=== PATIENT | male | born 1950 | race Caucasian/White ===

== ENCOUNTER → 2017-02-12 | Outpatient (REF) ==
[~2017-02-12] MED LIST: ASPIRIN 81M81 MG/TA2; CATAPRES 0.1MG0.1 MG PO; CEPHALEXIN500 M1 PO; COZAAR 50MG50 MG/TAB PO; DOXYCYCLINE 10100 MG PO; DUO-KAPS1 CAP; DYAZIDE 25 MG-31 CAP PO; FLOMAX 0.40.4 MG/CAP PO; KLOR-CON M2020 MEQ PO; MEDROL 4MG DOSPA4 MG PO; NORVASC 5MG5 MG/TAB PO; PREDNISONE TAPER; PYRIDIUM200 M1 PO; TRIAMTERENE-HCTZ; ZOCOR 20MG20 MG PO
== END ==
LOC: ZLAB.WCH 17:58
DX: Z01.89 Encounter for other specified special examinations (principal)

== ENCOUNTER 2018-09-22 08:56 | Day surgery (SDC) | payer MEDICARE, BC ==
[~2018-09-22] VITALS: Ht 185.4 cm; Wt 74.2 kg
[2018-09-22] VITALS (8 sets, daily range): BP systolic 141–149; BP diastolic 76–87; PULSE 62–85; TEMP 97.6–98.1
[~2018-09-22 08:56] MED LIST changes: -ZOCOR 20MG20 MG PO; +ZOCOR 40MG40 MG PO
--- NOTE | 2018-09-22 13:25 | NUR ---
Pt to [facility] via cart from PACU. Pt drowsy, but awake. Rates abdominal pain 3/10. Bandaids to abdomen are clean, dry, and intact. Pt denies nausea. in room. Water given per pt request. Will continue to monitor. Pt denies needs for pain medciation at this time.
--- NOTE | 2018-09-22 13:40 | NUR ---
Pt dozing on and off. Denies needs at this time. Call light within reach.
--- NOTE | 2018-09-22 13:55 | NUR ---
Pudding given per pt request. Pt rates pain 5/10 to abdomen. Will provide prn pain medication.
--- NOTE | 2018-09-22 13:58 | NUR ---
Tylenol 1000mg PO and Roxicodone 5mg PO given per orders for pain. Will continue to monitor.
--- NOTE | 2018-09-22 14:10 | NUR ---
Pt continues to rest. Denies needs call light within reach.
--- NOTE | 2018-09-22 14:40 | NUR ---
Pt states "the pain is getting better." Pt denies needs at this time. Call light within reach.
--- NOTE | 2018-09-22 15:10 | NUR ---
Pt continues to rest. Denies the need to use the restroom at this time. Will continue to monitor.
[2018-09-22] MEDS ORDERED: ROXICODONE 55 MG/TAB PO (15:11)
[2018-09-22] MEDS ORDERED: TYLENOL 500MG500 MG PO (15:12)
--- NOTE | 2018-09-22 15:30 | NUR ---
Pt continues to rest. Muffin and more water given per pt request. Denies further needs. Call light within reach.
--- NOTE | 2018-09-22 16:10 | NUR ---
Pt up to restroom with stand by assitance. Pt voids small amount without difficulties. Pt back to room to dress. to assist him. Call light within reach.
--- NOTE | 2018-09-22 16:30 | NUR ---
Discharge instructions reviewed. Pt voices understanding. IV site discontinued with all parts intact.
--- NOTE | 2018-09-22 16:40 | NUR ---
Pt escorted to private car via wheel chair. Pt accompanied home by his .
== END 2018-09-22 16:40 | disposition home or self-care (01) ==
LOC: SDCO 08:56
DX: K40.90 Unilateral inguinal hernia, without obstruction or gangrene, not specified as recurrent (principal); I10 Essential (primary) hypertension; E78.00 Pure hypercholesterolemia, unspecified; I35.1 Nonrheumatic aortic (valve) insufficiency; J45.909 Unspecified asthma, uncomplicated; N40.0 Benign prostatic hyperplasia without lower urinary tract symptoms; Z79.899 Other long term (current) drug therapy; Z79.82 Long term (current) use of aspirin
CPT/HCPCS: C1781; J0690; J1100; J2405; J2704; J2710; J3010; J7120

== ENCOUNTER 2020-10-03 07:45 | Observation (INO) | payer MEDICARE, BC ==
[~2020-10-03] VITALS: Ht 185.4 cm; Wt 69.5 kg
[~2020-10-03 07:45] MED LIST changes: +ROXICODONE 55 MG/TAB PO; +TYLENOL 500MG500 MG PO
[2020-10-03 08:21] LABS: INR 0.9 (0.8-3.0); PROTHROMBIN TIME 10.2 SECONDS (9.7-12.8)
[2020-10-03 08:23] LABS: ALANINE AMINOTRANSFERASE 21 U/L (4-49); ALBUMIN 4.5 gm/dL (3.5-5.0); ALKALINE PHOSPHATASE 64 U/L (50-136); ANION GAP 9 mmol/L (7-16); AST,SGOT 30 U/L (15-37); BILIRUBIN,TOTAL 1.2 mg/dL (0.0-1.0); BLOOD UREA NITROGEN 27 mg/dL (9-20); CALCIUM 9.7 mg/dL (8.4-10.2); CARBON DIOXIDE 28 mmol/L (22-30); CHLORIDE 101 mmol/L (98-107); CREATININE, serum 1.41 (0.66-1.25); GLUCOSE 95 mg/dL (74-106); POTASSIUM 3.8 mmol/L (3.4-5.0); SODIUM 139 mmol/L (137-145)
[2020-10-03 08:36] LABS: TROPONIN-I < 0.012 ng/mL (0.000-0.035)
[2020-10-03 08:43] LABS: COLLECTION METHOD CLEAN CATCH
[2020-10-03 08:49] LABS: PH 7 (5-8); SQUAMOUS EPITHELIAL None Seen /hpf; URINE APPEARANCE Clear; URINE BACTERIA None Seen /hpf; URINE BILIRUBIN Negative (NEGATIVE); URINE BLOOD Negative (NEGATIVE); URINE COLOR Straw; URINE GLUCOSE Negative (NEGATIVE); URINE KETONE Negative (NEGATIVE); URINE LEUKOCYTE ESTERASE Negative (NEGATIVE); URINE NITRATE Negative (NEGATIVE); URINE PROTEIN(semi-quant) Negative (NEGATIVE); URINE RBC None Seen /hpf; URINE UROBILINOGEN Negative (NEGATIVE)
[2020-10-03 09:03] LABS: BASO % 0.7 % (0.0-2.0); EOS % 0.9 % (0-4.0); GRAN # 2.7 (1.4-6.5); GRAN % 63.4 % (42.2-75.2); HEMOGLOBIN 16.6 g/dl (13.5-18.0); LYMPH % 23.8 % (20.0-51.0); MEAN CELL VOLUME 93 fl (80.0-100.0); MEAN CORPUSCULAR HEMOGLOBIN 32 pg (27.0-31.0); MEAN CORPUSCULAR HGB CONC 34 g/dl (33.0-37.0); MONO # 0.5 (0.1-0.6); PLATELET COUNT 205 K/mm3 (130-400); RED BLOOD COUNT 5.26 M/mm3 (4.20-5.60)
[2020-10-03 12:05] VITALS: BP 126/74; PULSE 62; TEMP 97.9
--- NOTE | 2020-10-03 12:09 | NUR ---
PT ARRIVED TO ROOM, PLEASANT, AOX4, PT WANTING TO EAT FOOD, HAVE TO CONTACT PHARM[employer]Y OPERATIONS MANAGER TO DETERMINE IF ANY TESTS WILL BE PERFORMED, PT ON TELE, DENIES PAIN/DISCOMFORT, PT MEDS WENT OVER, ASSESSMENT PERFORMED, NO OTHER NEEDS AT THIS TIME.
--- NOTE | 2020-10-03 12:16 | NUR ---
Pt is alert and oriented x4. Heart tones are present and normal, no murmur noted. Pt denies any chest pain/discomfort. Lung sounds are clear all lobes upon auscultation. Abdomen is soft and non-distended. Denies any calf pain/tenderness. Radial and posterior tibial pulses palpable 2+ bilaterally. Pt wanting to eat when possible. No complaints at this time.
[2020-10-03 13:01] LABS: MAGNESIUM 2.2 mg/dL (1.6-2.3)
[2020-10-03 13:33] LABS: TSH w REFLEX 2.11 uIU/mL (0.465-4.680)
[2020-10-03 16:45] VITALS: BP 113/69; PULSE 65; TEMP 98.2
--- NOTE | 2020-10-03 17:43 | NUR ---
PT PLEASANT, AOX4, DENIES CHEST PAIN, ADMISSION COMPLETED, NO OTHER NEEDS AT THIS TIME.
[2020-10-03 20:37] VITALS: BP 115/61; PULSE 57; TEMP 98.1
--- NOTE | 2020-10-03 23:44 | NUR ---
ALERT AND OX4. DENIES CHEST PAIN, SOA, DIZZY OR PALPATATION. PM MED GIVEN. DENIES PAIN. L AC FLUSHED, INT. TELE CONTINUES TO SHOW NORMAL SINUS RYTHM. FEELING MUCH BETTER THIS EVENING. DENIES ANY NEEDS. POC DISCUSSED. ANTCIPATES DC TOMORROW.
[2020-10-03 23:51] VITALS: BP 112/60; PULSE 58; TEMP 97.9
[2020-10-04 04:00] VITALS: BP 123/63; PULSE 62; TEMP 97.5
--- NOTE | 2020-10-04 05:15 | NUR ---
Rested through the night without incident. Needs met .
[2020-10-04 07:58] VITALS: BP 125/64; PULSE 67; TEMP 98.3
--- NOTE | 2020-10-04 09:08 | NUR ---
PT PLEASANT, AOX4, REGULAR HR, PT INDEPENDENT IN ROOM, DENIES PAIN, SOB. NO OTHER NEEDS. PT EAGER FOR DISCHARGE, IV FLUSHED W/O PAIN/ERYTHEMA, CALL LIGHT WITHIN REACH.
[2020-10-04] MEDS ORDERED: ELIQUIS 5MG PO (10:10)
[2020-10-04] MEDS ORDERED: LIPITOR20 MG PO (10:17)
[2020-10-04] MEDS ORDERED: CARDIZEM CD 12120 MG PO (10:18)
--- NOTE | 2020-10-04 12:20 | NUR ---
PT ESCORTED OUT, PT REFUSED WHEELCHAIR AND STEADY ON FEET. IV REMOVED PRIOR AND DISCHARGE EDUCATION PROVIDED ON [employer] APPT, NEW MEDS AND SIDE EFFECTS. NO OTHER NEEDS AT THIS TIME.
--- NOTE | 2020-10-04 13:05 | NUR ---
Initial visit; Patient thanked [employer] for looking in on him and wishing him well and God's blessings.
== END 2020-10-04 11:40 | disposition home or self-care (01) ==
LOC: COL.ER 07:45 → MEDICAL 09:13
PROVIDERS: Emergency Medicine; Physician Assistant; ADMIT Hospitalist
DX: I48.91 Unspecified atrial fibrillation (principal); I12.9 Hypertensive chronic kidney disease with stage 1 through stage 4 chronic kidney disease, or unspecified chronic kidney disease; N40.0 Benign prostatic hyperplasia without lower urinary tract symptoms; N18.30 Chronic kidney disease, stage 3 unspecified; E78.5 Hyperlipidemia, unspecified; Z79.01 Long term (current) use of anticoagulants; Z79.82 Long term (current) use of aspirin; Z79.899 Other long term (current) drug therapy; Z88.1 Allergy status to other antibiotic agents
CPT/HCPCS: G0378; J0153; J2704; J7030

== ENCOUNTER 2023-08-27 05:58 | Emergency (ER) | payer MEDICARE, BC ==
[~2023-08-27] VITALS: Ht 185.4 cm; Wt 72.7 kg
[~2023-08-27 05:58] MED LIST changes: +CARDIZEM CD 12120 MG PO; +ELIQUIS 5MG PO; +LIPITOR20 MG PO; +MAXZIDE-25MG TA1 TAB PO; +PRESERVISION A1 EAC3 PO
[2023-08-27 06:04] VITALS: TEMP 98.3
[2023-08-27] MEDS ORDERED: dilTIAZem 25 MG/5 ML VIAL IV ONE ×2 (06:15→08:45)
[2023-08-27] MEDS ORDERED: NS 1,000 ML IV ONE (06:15)
[2023-08-27 06:25] LABS: BASO % 0.6 % (0.0-2.0); EOS # 0.1 K/mm3 (0.0-0.7); GRAN # 2.3 K/mm3 (1.4-6.5); GRAN % 47.3 % (42.2-75.2); HEMATOCRIT 46.2 % (42.0-52.0); HEMOGLOBIN 16.1 g/dl (13.5-18.0); LYMPH # 1.8 K/mm3 (1.2-3.4); LYMPH % 36.2 % (20.0-51.0); MEAN CELL VOLUME 94 fl (80.0-100.0); MEAN CORPUSCULAR HEMOGLOBIN 33 pg (27-31); MEAN CORPUSCULAR HGB CONC 35 g/dl (33.0-37.0); MEAN PLATELET VOLUME 10.1 fl (7.4-10.4); MONO # 0.7 K/mm3 (0.1-0.6); MONO % 13.7 % (1.7-9.3); PLATELET COUNT 191 K/mm3 (130-400); RED BLOOD COUNT 4.91 M/mm3 (4.20-5.60); REDCELL DISTRIBUTION WIDTH-CV 12.1 % (11.5-14.5)
[2023-08-27 06:43] LABS: ALBUMIN 3.7 gm/dL (3.4-4.8); BILIRUBIN,TOTAL 1.2 mg/dL (0.2-1.2); CALCIUM 9.3 mg/dL (8.4-10.2); CREATININE, serum 1.32 mg/dL (0.72-1.25); MAGNESIUM 2.1 mg/dL (1.6-2.6); POTASSIUM 3.9 mmol/L (3.5-4.5); TOTAL PROTEIN 6.5 gm/dL (6.2-8.1)
[2023-08-27 06:49] LABS: TROPONIN-I 0.021 ng/mL (0.00-0.033)
[2023-08-27] MEDS ORDERED: Iohexol 300 - 100 ML VIAL IV ONE (08:01)
[2023-08-27] MEDS ORDERED: NS 100 ML IV SCH (08:02)
[2023-08-27] MEDS ORDERED: CARTIA XT180 MG PO (10:22)
[2023-08-27 10:52] VITALS: BP 113/72; PULSE 58
== END 2023-08-27 10:52 | disposition home or self-care (01) ==
LOC: COL.ER 05:58
PROVIDERS: Emergency Medicine
DX: I48.91 Unspecified atrial fibrillation (principal); Z79.899 Other long term (current) drug therapy
CPT/HCPCS: J7030; Q9967